=== PATIENT | male | born 1980 | race American Indian/Alaskan Native ===

== ENCOUNTER 2019-09-16 10:21 | Emergency (ER) | payer OTHER ==
[2019-09-16 10:41] VITALS: BP 149/92
[2019-09-16] MEDS ORDERED: ONDANSETRON 4 MG ODT TAB PO ONE (12:20)
--- NOTE | 2019-09-16 12:36 | Emergency Department Report ---
ED General Adult HPI - General Chief complaint: Pain General Stated complaint: CHEST TIGHT/BODY ACHES Time Seen by Provider: 09/16/19 12:19 Source: patient Mode of arrival: Ambulatory Limitations: No Limitations - History of Present Illness Initial comments: 39 year old -Citizen Of [place] male presents to the emergency room complaining of body aches, chills vomiting and fever for 4 days. 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 Patient does have a primary care provider. Patient reports that his cough has improved. Patient reports he took Tylenol and Sudafed which has helped. Patient has a past medical history of HIV. Onset/Timin -: days(s) Improves with: medication Worsens with: none Associated Symptoms: cough, fever/chills, nausea/vomiting, weakness, other (body aches) Treatments Prior to Arrival: none - Related Data Previous Rx's Medication Instructions Recorded Last Taken Type Amoxicillin/K Clav Tab [Augmentin 1 tab PO Q12HR #20 tab 09/01/15 Unknown Rx 875 mg] Ibuprofen [Motrin] 800 mg PO Q8HR PRN #15 tablet 09/01/15 Unknown Rx Allergies Allergy/AdvReac Type Severity Reaction Status Date / Time Sulfa (Sulfonamide Allergy Hives Verified 09/16/19 10:45 Antibiotics) ED Review of Systems ROS: Stated complaint: CHEST TIGHT/BODY ACHES Other details as noted in HPI ED Past Medical Hx - Past Medical History Previous Medical History?: No Hx HIV: Yes - Surgical History Past Surgical History?: Yes Additional Surgical History: Tonsillectomy 2006 - Social History Smoking Status: Never Smoker Substance Use Type: None - Medications Home Medications: Home Medications Medication Instructions Recorded Confirmed Last Taken Type Amoxicillin/K Clav Tab [Augmentin 1 tab PO Q12HR #20 tab 09/01/15 Unknown Rx 875 mg] Ibuprofen [Motrin] 800 mg PO Q8HR PRN #15 tablet 09/01/15 Unknown Rx ED Physical Exam - General Limitations: No Limitations General appearance: alert, in no apparent distress - Head Head exam: Present: atraumatic, normocephalic - Eye Eye exam: Present: normal appearance - ENT ENT exam: Present: mucous membranes moist - Neck Neck exam: Present: normal inspection - Respiratory Respiratory exam: Present: normal lung sounds bilaterally. Absent: respiratory distress - Cardiovascular Cardiovascular Exam: Present: regular rate, normal rhythm. Absent: systolic murmur, diastolic murmur, rubs, gallop - GI/Abdominal GI/Abdominal exam: Present: soft, normal bowel sounds - Rectal Rectal exam: Present: deferred - Extremities Exam Extremities exam: Present: normal inspection - Back Exam Back exam: Present: normal inspection - Neurological Exam Neurological exam: Present: alert, oriented X3 - Psychiatric Psychiatric exam: Present: normal affect, normal mood - Skin Skin exam: Present: warm, dry, intact, normal color. Absent: rash ED Course Vital Signs 09/16/19 09/16/19 09/16/19 10:40 12:27 14:13 Temperature 99.0 F Pulse Rate 69 Respiratory 17 16 16 Rate Blood Pressure 149/92 O2 Sat by Pulse 96 Oximetry ED Medical Decision Making - Medical Decision Making 39 year old -Citizen Of [place] male presents to the emergency room complaining of body aches, chills vomiting and fever for 4 days. 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 Patient does have a primary care provider. Patient reports that his cough has improved. Patient reports he took Tylenol and Sudafed which has helped. Patient has a past medical history of HIV. Critical care attestation.: If time is entered above; I have spent that time in minutes in the direct care of this critically ill patient, excluding procedure time. ED Disposition Clinical Impression: Viral syndrome Disposition: DC-01 TO HOME OR SELFCARE Is pt being admited?: No Does the pt Need Aspirin: No Condition: Stable Instructions: Viral Syndrome (ED) Additional Instructions: Elmery can take Tylenol and/or ibuprofen as needed for body aches and chills. You can take Zofran as needed for nausea and vomiting. Increase your fluid intake and advance her diet as tolerated Referrals: PRIMARY CARE, [Primary Care Provider] - 3-5 Days Forms: Work/School Release Form(ED)
[2019-09-16] MEDS ORDERED: IBUPROFEN 600 MG TAB PO ONE (13:37)
== END 2019-09-16 14:50 | disposition home or self-care (01) ==
LOC: ED 10:21
DX: B34.9 Viral infection, unspecified (principal); Z21 Asymptomatic human immunodeficiency virus [HIV] infection status; Z90.89 Acquired absence of other organs; Z79.899 Other long term (current) drug therapy; Z88.2 Allergy status to sulfonamides
CPT/HCPCS: Q0162

== ENCOUNTER 2021-07-19 14:17 | Emergency (ER) | payer OTHER ==
[2021-07-19 14:39] VITALS: BP 151/92
--- NOTE | 2021-07-19 16:49 | Emergency Department Report ---
- General Chief complaint: Skin Rash Stated complaint: BODY ITCHING FOR 3 WEEKS Time Seen by Provider: 07/19/21 16:33 Source: patient Mode of arrival: Ambulatory Limitations: No Limitations - History of Present Illness Initial comments: Patient is a 41-year-old male presents emergency room with complaints of diffuse body itching that began 3 weeks ago. He denies any rash. He denies any new soaps, lotions, detergents, medications, foods, recent antibiotics. He denies any other symptoms at all to states he feels consistent itching. He states he has been taking Benadryl without much relief. He has a past medical history of HIV and reports that he stopped his antivirals for 1 week due to being concerned that his itching was from liver dysfunction from his HIV medication. He has never had any history of any liver dysfunction. He states he does have an infectious disease doctor and plans to follow-up with them. He has an allergy to sulfa. - Related Data Previous Rx's Medication Instructions Recorded Last Taken Type Amoxicillin/K Clav Tab [Augmentin 1 tab PO Q12HR #20 tab 09/01/15 Unknown Rx 875 mg] Ibuprofen [Motrin] 800 mg PO Q8HR PRN #15 tablet 09/01/15 Unknown Rx hydrOXYzine HCL [Atarax] 25 mg PO Q6HR PRN #14 tablet 07/19/21 Unknown Rx Allergies Allergy/AdvReac Type Severity Reaction Status Date / Time Sulfa (Sulfonamide Allergy Hives Verified 09/16/19 10:45 Antibiotics) Abscess Boil HPI - HPI Chief Complaint: Skin Rash Stated Complaint: BODY ITCHING FOR 3 WEEKS Time Seen by Provider: 07/19/21 16:33 Home Medications: Previous Rx's Medication Instructions Recorded Last Taken Type Amoxicillin/K Clav Tab [Augmentin 1 tab PO Q12HR #20 tab 09/01/15 Unknown Rx 875 mg] Ibuprofen [Motrin] 800 mg PO Q8HR PRN #15 tablet 09/01/15 Unknown Rx hydrOXYzine HCL [Atarax] 25 mg PO Q6HR PRN #14 tablet 07/19/21 Unknown Rx Allergies/Adverse Reactions: Allergies Allergy/AdvReac Type Severity Reaction Status Date / Time Sulfa (Sulfonamide Allergy Hives Verified 09/16/19 10:45 Antibiotics) ED Review of Systems ROS: Stated complaint: BODY ITCHING FOR 3 WEEKS Other details as noted in HPI Comment: All other systems reviewed and negative ED Past Medical Hx - Past Medical History Previous Medical History?: Yes Hx HIV: Yes - Surgical History Past Surgical History?: Yes Additional Surgical History: Tonsillectomy 2006 - Social History Smoking Status: Never Smoker Substance Use Type: None - Medications Home Medications: Home Medications Medication Instructions Recorded Confirmed Last Taken Type Amoxicillin/K Clav Tab [Augmentin 1 tab PO Q12HR #20 tab 09/01/15 Unknown Rx 875 mg] Ibuprofen [Motrin] 800 mg PO Q8HR PRN #15 tablet 09/01/15 Unknown Rx hydrOXYzine HCL [Atarax] 25 mg PO Q6HR PRN #14 tablet 07/19/21 Unknown Rx ED Physical Exam - General Limitations: No Limitations General appearance: alert, in no apparent distress - Head Head exam: Present: atraumatic, normocephalic - Eye Eye exam: Present: normal appearance. Absent: scleral icterus, conjunctival injection - ENT ENT exam: Present: mucous membranes moist - Respiratory Respiratory exam: Present: normal lung sounds bilaterally. Absent: respiratory distress, wheezes, rales, rhonchi, stridor, chest wall tenderness, accessory muscle use, decreased breath sounds, prolonged expiratory - Cardiovascular Cardiovascular Exam: Present: regular rate, normal rhythm, normal heart sounds. Absent: systolic murmur, diastolic murmur, rubs, gallop - Neurological Exam Neurological exam: Present: alert, oriented X3 - Psychiatric Psychiatric exam: Present: normal affect, normal mood - Skin Skin exam: Present: warm, dry, intact. Absent: rash ED Course Vital Signs 07/19/21 14:35 Temperature 99.7 F H Pulse Rate 80 Respiratory 18 Rate Blood Pressure 151/92 [Right] O2 Sat by Pulse 99 Oximetry ED Medical Decision Making - Lab Data Result diagrams: 07/19/21 16:45 07/19/21 16:45 Lab Results 07/19/21 07/19/21 Range/Units 16:45 16:45 WBC 5.0 (4.5-11.0) K/mm3 RBC 5.68 H (3.65-5.03) M/mm3 Hgb 14.3 (11.8-15.2) gm/dl Hct 44.5 (35.5-45.6) % MCV 78 L (84-94) fl MCH 25 L (28-32) pg MCHC 32 (32-34) % RDW 17.0 H (13.2-15.2) % Plt Count 215 (140-440) K/mm3 Lymph % (Auto) 45.1 H (13.4-35.0) % [place] % (Auto) 12.9 H (0.0-7.3) % Eos % (Auto) 2.0 (0.0-4.3) % Baso % (Auto) 0.7 (0.0-1.8) % Lymph # (Auto) 2.3 (1.2-5.4) K/mm3 [place] # (Auto) 0.6 (0.0-0.8) K/mm3 Eos # (Auto) 0.1 (0.0-0.4) K/mm3 Baso # (Auto) 0.0 (0.0-0.1) K/mm3 Seg Neutrophils % 39.3 L (40.0-70.0) % Seg Neutrophils # 2.0 (1.8-7.7) K/mm3 Sodium 139 (137-145) mmol/L Potassium 4.3 (3.6-5.0) mmol/L Chloride 102.3 (98-107) mmol/L Carbon Dioxide 24 (22-30) mmol/L Anion Gap 17 mmol/L BUN 7 L (9-20) mg/dL Creatinine 1.0 (0.8-1.3) mg/dL Estimated GFR > 60 ml/min BUN/Creatinine Ratio 7 % Glucose 89 (75-100) mg/dL Calcium 9.3 (8.4-10.2) mg/dL Total Bilirubin 0.50 (0.1-1.2) mg/dL AST 60 H (5-40) units/L ALT 57 H (7-56) units/L Alkaline Phosphatase 116 (35-129) units/L Total Protein 8.2 (6.3-8.2) g/dL Albumin 4.5 (3.9-5) g/dL Albumin/Globulin Ratio 1.2 % - Medical Decision Making Patient is a 41-year-old male presents emergency room with complaints of diffuse body itching that began 3 weeks ago. He denies any rash. He denies any new soaps, lotions, detergents, medications, foods, recent antibiotics. He denies any other symptoms at all to states he feels consistent itching. He states he has been taking Benadryl without much relief. He has a past medical history of HIV and reports that he stopped his antivirals for 1 week due to being concerned that his itching was from liver dysfunction from his HIV medication. He has never had any history of any liver dysfunction. He states he does have an infectious disease doctor and plans to follow-up with them. He has an allergy to sulfa. Vitals are stable. No abnormality on physical examination as docume nted in chart. Labs with very mild elevation of AST and ALT. Bilirubin is normal. Discussed case with Dr. Kelley, ER attending who advised to have patient continue taking his antivirals and for him to follow-up with his infectious disease doctor. Patient given prescription for hydroxyzine. Advised patient Please take medication as prescribed. Please follow-up with your infectious disease doctor. Please take your HIV medication as prescribed by your doctor. Return to emergency room for any new or worsening symptoms. Critical care attestation.: If time is entered above; I have spent that time in minutes in the direct care of this critically ill patient, excluding procedure time. ED Disposition Clinical Impression: Pruritus, LFT elevation Disposition: 01 HOME / SELF CARE / HOMELESS Is pt being admited?: No Does the pt Need Aspirin: No Condition: Stable Instructions: Pruritus Additional Instructions: Please take medication as prescribed. Please follow-up with your infectious disease doctor. Please take your HIV medication as prescribed by your doctor. Return to emergency room for any new or worsening symptoms. Prescriptions: hydrOXYzine HCL [Atarax] 25 mg PO Q6HR PRN #14 tablet PRN Reason: Itching Referrals: your, primary care doctor [Other] - 2-3 Days your, infectious disease doctor [Other] - 2-3 Days Time of Disposition: 17:28 Print Language: AMHARIC
[2021-07-19 16:58] LABS: Basophils % (Auto) 0.7 % (0.0-1.8); Eosinophils # (Auto) 0.1 K/mm3 (0.0-0.4); Hematocrit 44.5 % (35.5-45.6); Hemoglobin 14.3 gm/dl (11.8-15.2); Lymphocytes # (Auto) 2.3 K/mm3 (1.2-5.4); Lymphocytes % (Auto) 45.1 % (13.4-35.0); Mean Corpuscular HGB Conc 32 % (32-34); Mean Corpuscular Volume 78 fl (84-94); Monocytes # (Auto) 0.6 K/mm3 (0.0-0.8); Monocytes % (Auto) 12.9 % (0.0-7.3); Platelet Count 215 K/mm3 (140-440); Red Blood Count 5.68 M/mm3 (3.65-5.03)
[2021-07-19 17:18] LABS: Alanine Aminotransferase 57 units/L (7-56); Albumin 4.5 g/dL (3.9-5); BUN/Creatinine Ratio 7; Blood Urea Nitrogen 7 mg/dL (9-20); Calcium 9.3 mg/dL (8.4-10.2); Hemolysis Index 17
== END 2021-07-19 18:23 | disposition home or self-care (01) ==
LOC: ED 14:17
DX: L29.9 Pruritus, unspecified (principal); R74.01 Elevation of levels of liver transaminase levels; Z21 Asymptomatic human immunodeficiency virus [HIV] infection status; Z98.890 Other specified postprocedural states; Z88.2 Allergy status to sulfonamides
CPT/HCPCS: 36415; 80053; 85025; 99283